=== PATIENT | male | born 1975 | race Caucasian/White ===

== ENCOUNTER 2019-06-13 17:53 | Emergency (ER) | payer OTHER ==
[~2019-06-13] VITALS: Ht 180.3 cm; Wt 98.0 kg
[2019-06-13 18:20] VITALS: Ht 180.3 cm; Wt 98.0 kg
[2019-06-13 19:38] VITALS: BP 137/93
== END 2019-06-13 19:38 | disposition home or self-care (01) ==
LOC: ED 17:53
DX: M79.5 Residual foreign body in soft tissue (principal)